=== PATIENT | female | born 1980 | race Caucasian/White ===

== ENCOUNTER 2016-05-26 08:41 | Emergency (ER) | payer MEDICAID ==
[~2016-05-26] VITALS: Ht 160 cm; Wt 65.0 kg
[~2016-05-26 08:41] MED LIST: ACET-915
[2016-05-26 08:45] VITALS: Ht 160 cm; Wt 65.0 kg
[2016-05-26] MEDS ORDERED: ASPIRIN 325 MG TAB PO ONE (09:30)
--- NOTE | 2016-05-26 09:46 | ERD ---
ER Documentation Chief Complaint Date/Time DATE: 05/26/16 TIME: 09:15 Chief Complaint INTERMITTENT CHEST PAIN RADIATES TO LEFT ARM. HPI 35 y/o female presents to ED for non-provoked left-sided chest pain that started yesterday afternoon while she was sitting at the couch. Pain was described as dull/throbbing that radiates to left arm with a pain rate of 5/10 at this time but 8/10 last night. Denies headache, loss of consciousness, dizziness, blurry vision, changes in vision, photophobia, facial pain, ear pain, throat pain, difficulty swallowing, neck pain, shoulder pain, cough, hemoptysis, abdominal pain, back pain, loss of appetite, nausea, vomiting, hematochezia, diarrhea, constipation, urinary symptoms, , the possibility of being , bladder and bowel incontinences, extremity weakness, extremity tenderness, numbness or tingling sensation, difficulty walking, recent travel, recent exposure to illness, recent antibiotic use in the last 3 months, fever, chills. Allergy: NKA PMH: Denies Family medical history: Grandmother (mother's side) of heart attack at age of 3232 years old AO LMP: 05/22/2016 Medications: Denies Surgery: Cholecystectomy Primary Social History: Does not work at this time Denies smoking, use of alcohol, use of illegal drugs. ROS All systems reviewed and are negative except as per history of present illness. Medications Home Meds Active Scripts Ibuprofen* (Motrin*) 600 Mg Tab, 600 MG PO Q6H Y for PAIN AND OR ELEVATED TEMP, #30 TAB Prov:MARLAZEFERINO Damico 05/26/16 Reported Medications Acetaminophen* (Tylenol*) 325 Mg Tab 09/09/11 [None] No Conflict Check 10/21/10 Allergies Allergies: Coded Allergies: No Known Drug Allergy (Verified Allergy, Mild, 12/20/11) PMhx/Soc History of Surgery: Yes ( 2011) Anesthesia Reaction: No Hx Neurological Disorder: No Hx Respiratory Disorders: No Hx Cardiac Disorders: No Hx Psychiatric Problems: No Hx Miscellaneous Medical Probl: No Hx Alcohol Use: No Hx Substance Use: No Hx Tobacco Use: No Physical Exam Vitals Vital Signs Date Time Temp Pulse Resp B/P Pulse Ox O2 Delivery O2 Flow Rate FiO2 1/30/17 08:45 98.5 76 18 136/75 98 Physical Exam CONSTITUTIONAL: Well-appearing; well-nourished; in no apparent distress. HEAD: Normocephalic; atraumatic. EYES: Conjunctiva clear, sclera non-icteric, EOM intact. PERRL Ears: Hearing intact. EACs clear, TMs non-bulging, non-inflamed, translucent & mobile, ossicles normal appearance, No obstructions, no erythema, no discharges Nose: No obstructions. No polyps. No external lesions. Mucosa non-inflamed. No external lesions, septum and turbinates normal. No rhinorrhea. No discharges. Frontal sinus is non-tender to palpation. Maxillary sinus is non-tender to palpation. MOUTH: Moist mucous membranes, no lesion, no obstructions, no vesicles, no thrush, patent airway Throat: Uvula in midline. Right tonsil is +1 with no erythema, no exudate. Left tonsil is +1 with no erythema, no exudate. Tolerating secretions well. Good gag reflex. Patent airway. Neck: Supple, without lesions, bruits, or adenopathy. No mass. Thyroid non- enlarged and non-tender to palpation. CHEST: Symmetrical chest. Respirations even and not labored. No retractions noted. CARDIOVASCULAR: Normal S1, S2. RRR. No murmurs, gallops. RESPIRATORY: Normal chest excursion with respiration; breath sounds clear and equal bilaterally; no wheezes, rhonchi, or rales. Breathing even and unlabored. Speaking in clear, full, and complete sentences w/ ease. ABDOMEN: Normal bowel sounds normal. Soft, round, non-distended, non-guarding, no tenderness, no rebound, no organomegaly, no masses, no pulsating abdominal mass. No hernia. No peritoneal signs. : No CVA tenderness. BACK: Symmetrical shoulder. Spine is midline without deformity, tenderness. No evidence of trauma or deformity. PELVIS: Stable pelvis. No evidence of trauma or deformity. MUSCULOSKELETAL: Normal gait and station. No misalignment, asymmetry, crepitation, defects, tenderness, masses, effusions, decreased range of motion, instability, atrophy or abnormal strength or tone in the head, neck, spine, ribs , pelvis or extremities. No calf tenderness. NEUROVASCULAR: Distal pulses are present. Pedal pulse are present, equal, and normal. Capillary refills are < 2 seconds. NEUROLOGIC: Alert and oriented x4. Speaks full and clear sentences. Cranial Nerves II-XII normal. Sensation to pain, touch, and proprioception normal. Grossly unremarkable. No neurologic deficits. Romberg test is negative. PSYCHOLOGICAL: The patients mood and manner are appropriate. No hallucinations , delusions. Not SI. Not HI. Has the capacity to decide for self SKIN: Normal for age and ethnicity; warm; dry; good turgor; no apparent lesions or exudates. No rashes, hives, discoloration. Intact. Result Diagram: 05/26/1693605/26/16936 Results 24 hrs Laboratory Tests Test 05/26/16 09:37 05/26/16 09:48 Activated Partial Thromboplast Time 33.3Sec Alanine Aminotransferase (ALT/SGPT) 32IU/L Albumin 4.5g/dl Albumin/Globulin Ratio 1.21 Alkaline Phosphatase 78IU/L Anion Gap 19 Aspartate Amino Transf (AST/SGOT) 20IU/L Basophils # 0.010^3/ul Basophils % 0.5% Blood Urea Nitrogen 9mg/dl Calcium Level 9.5mg/dl Carbon Dioxide Level 26mmol/L Chloride Level 103mmol/L Creatinine 0.65mg/dl Direct Bilirubin 0.00mg/dl Eosinophils # 0.110^3/ul Eosinophils % 1.6% Globulin 3.70g/dl Glucose Level 90mg/dl Hematocrit 41.8% Hemoglobin 14.7g/dl INR International Normalized Ratio 0.93 Indirect Bilirubin 0.1mg/dl Lipase 47U/L Lymphocytes # 2.010^3/ul Lymphocytes % 36.5% Mean Corpuscular Hemoglobin 30.5pg Mean Corpuscular Hemoglobin Concent 35.3g/dl Mean Corpuscular Volume 86.6fl Mean Platelet Volume 8.0fl Monocytes # 0.210^3/ul Monocytes % 3.5% Neutrophils # 3.110^3/ul Neutrophils % 57.9% Nucleated Red Blood Cells # 0.010^3/ul Nucleated Red Blood Cells % 0.0/100WBC Platelet Count 55881^3/UL Potassium Level 3.8mmol/L Prothrombin Time 12.5Sec Prothrombin Time Ratio 1.0 Red Blood Count 4.8310^6/ul Red Cell Distribution Width 12.4% Sodium Level 144mmol/L Total Bilirubin 0.1mg/dl Total Protein 8.2g/dl Troponin I 0.018ng/ml White Blood Count 5.410^3/ul Urine Bilirubin NEGATIVE Urine Clarity CLEAR Urine Color LT. YELLOW Urine Epithelial Cells FEW Urine Glucose NEGATIVE% Urine Hemoglobin 1+ Urine Ketones NEGATIVE Urine Leukocyte Esterase NEGATIVE Urine Microscopic RBC 2-5/HPF Urine Microscopic WBC 2-5/HPF Urine Nitrite NEGATIVE Urine Specific Issue <=1.005 Urine Total Protein NEGATIVE Urine Urobilinogen 0.2 E.U./dL Urine pH 6.5 Current Medications Medications (Trade) Dose Ordered Sig/Toña Route PRN Reason Start Time Stop Time Status Last Admin Dose Admin Aspirin (Aspirin) 325 mg ONCE ONCE PO 05/26/16 09:30 05/26/16 09:35 DC 05/26/16 09:48 Ibuprofen (Motrin) 600 mg ONCE ONCE PO 05/26/16 11:00 05/26/16 11:01 DC 05/26/16 10:49 Procedures/MDM Examination: Unremarkable examination. Disease process, medical treatment was explained to the patient and family member. They verbalized understanding and agreed with the diagnostic tests, medical treatment, and follow-up care. EKG: Normal sinus rhythm with rate of 81 bpm Radiology: No evidence of cardiopulmonary disease. Blood works unremarkable Troponin is 0.018 NG/ML. I discussed this with Dr. Qiana Flanagan. She said that I could discharge the patient and follow-up with her primary care physician in the next 24-48 hours and have her primary care physician refer her to a special collections librarian. Treatment: Aspirin 325 mg by mouth once. Re-evaluation: Denies chest pain/left arm pain/shortness of breath prior to discharge. Consultation: None Differential diagnosis: Acute myocardial infarction versus chest wall pain versus left arm pain Medical decision makin5 y/o female presents to ED for non-provoked left- sided chest pain that started yesterday afternoon while she was sitting at the couch. Pain was described as dull/throbbing that radiates to left arm with a pain rate of 5/10 at this time but 8/10 last night. Patient's complaint, history, my physical findings, diagnostic test results are consistent with my final diagnosis of chest wall pain. Medications prescribed are the following: Motrin. Patient and family member are made aware of the side effects and adverse reactions of the medications prescribed. Instructed on when to seek emergent and medical attention in case allergic/anaphylactic reactions or severe side effects and or adverse reactions to medications. Patient and family member verbalized understanding. Patient instructed Instructed to follow-up with his PCP in 24-48 hours. PCP to refer patient to special collections librarian in the next 24-48 hours. Instructed to Call 911 for chest pain, shortness of breath. Advised to come back here in ED as soon as possible for severity of symptoms which includes but not limited to: any new symptoms; shortness of breath/difficulty of breathing; cardiovascular changes; severe gastrointestinal symptoms; signs and symptoms of bleeding and or infection; signs of compartment syndrome/neurovascular changes; neurological changes/deficits. Patient and family member verbalized understanding. Upon discharge, patient is alert and oriented x 4, speaks full and clear sentences, denies pain, has no neurological deficits, has no neurovascular deficits, difficulty of breathing. Breathing even and unlabored. Lung sounds are clear to auscultation. Not in distress. Appears comfortable. Ambulatory with steady gait. Appears satisfied with care provided here in ED. Departure Diagnosis: Primary Impression: Chest wall pain Condition: Good Additional Instructions: Follow-up with PCP in 24-48 hours. PCP to refer patient to special collections librarian in 24- 48 hours. ZEFERINO GUTIÉRREZ May 26, 2016 09:46
[2016-05-26 09:53] LABS: BASOPHILS % 0.5 % (0.0-2.0); EOSINOPHILS # 0.1 10^3/ul (0.0-0.5); EOSINOPHILS % 1.6 % (0.0-7.0); HEMATOCRIT 41.8 % (37.0-47.0); HEMOGLOBIN 14.7 g/dl (12.0-16.0); LYMPHOCYTES % 36.5 % (15.0-51.0); MEAN CORPUSCULAR HEMOGLOBIN 30.5 pg (29.0-33.0); MEAN CORPUSCULAR HGB CONC 35.3 g/dl (32.0-37.0); MEAN CORPUSCULAR VOLUME 86.6 fl (82.0-101.0); MONOCYTE # 0.2 10^3/ul (0.3-0.9); MONOCYTES % 3.5 % (0.0-11.0); NEUTROPHIL # 3.1 10^3/ul (1.6-7.5); NEUTROPHILS % 57.9 % (39.0-77.0); PLATELET COUNT 236 10^3/UL (140-440); RED BLOOD COUNT 4.83 10^6/ul (4.20-5.40); RED CELL DISTRIBUTION WIDTH 12.4 % (11.5-14.5); UNCORRECTED WBC 5.4 10^3/ul (4.8-10.8); WHITE BLOOD COUNT 5.4 10^3/ul (4.8-10.8)
[2016-05-26 09:55] LABS: CONDITION 1
[2016-05-26 09:57] LABS: ADD UMIC YES; URINE BILIRUBIN (Dip) NEGATIVE (NEGATIVE); URINE BLOOD (Dip) 1+ (NEGATIVE); URINE COLOR LT. YELLOW (YELLOW); URINE GLUCOSE (Dip) NEGATIVE (NEGATIVE); URINE KETONES (Dip) NEGATIVE (NEGATIVE); URINE LEUKOCYTE ESTERASE (Dip) NEGATIVE (NEGATIVE); URINE NITRITE (Dip) NEGATIVE (NEGATIVE); URINE TOTAL PROTEIN (Dip) NEGATIVE (NEGATIVE); URINE UROBILINOGEN (Dip) 0.2 E.U./dL (0.1-1.0)
[2016-05-26 10:04] LABS: ALBUMIN 4.5 g/dl (3.3-4.9); INR 0.93; PARTIAL THROMBOPLASTIN TIME 33.3 Sec (25.0-35.0); PROTIME 12.5 Sec (12.2-14.2)
[2016-05-26 10:05] LABS: POTASSIUM 3.8 mmol/L (3.5-5.1)
[2016-05-26 10:07] LABS: ALBUMIN/GLOBULIN RATIO 1.21; BILIRUBIN,INDIRECT 0.1 mg/dl (0-1.1); BILIRUBIN,TOTAL 0.1 mg/dl (0.2-1.3); CREATININE 0.65 mg/dl (0.44-1.00); TOTAL PROTEIN 8.2 g/dl (6.1-8.1)
[2016-05-26 10:08] LABS: CALCIUM 9.5 mg/dl (8.4-10.2)
--- NOTE | 2016-05-26 10:17 | RADRPT ---
PROCEDURE: XR Chest. CLINICAL INDICATION: Chest pain. TECHNIQUE: Single frontal view of the chest was obtained. COMPARISON: None. FINDINGS: Cardiomediastinal silhouette appears normal Pulmonary vasculature appears normal. Lung foster appear clear. Costophrenic angles are well defined. The osseous elements appear intact. IMPRESSION: 1. No evidence for active cardiopulmonary disease. RPTAT: [facility] Physician Jarret Date Time Electronically viewed and signed by Curt Logan Physician on 05/26/2016 10:17 /
[2016-05-26 10:19] LABS: TROPONIN-I 0.018 ng/ml (0.00-0.12)
[2016-05-26] MEDS ORDERED: IBUP-1542 PO (10:40)
[2016-05-26] MEDS ORDERED: IBUPROFEN 600 MG TAB PO ONE (11:00)
== END 2016-05-26 11:44 | disposition home or self-care (01) ==
LOC: FTE 08:41
DX: R07.89 Other chest pain (principal)
CPT/HCPCS: 71020; 80053; 81001; 81003; 83690; 84484; 85025; 85610; 85730; Z7610; 36415; 93005